=== PATIENT | female | born 1970 | race Asian ===

== ENCOUNTER 2018-12-04 18:48 | Emergency (ER) | payer MEDICAID ==
[~2018-12-04] VITALS: Ht 157.5 cm; Wt 58.3 kg
[2018-12-04 18:52] VITALS: Ht 157.5 cm; Wt 58.3 kg
[2018-12-04 20:30] VITALS: BP 140/90
== END 2018-12-04 20:30 | disposition home or self-care (01) ==
LOC: ED 18:48
DX: S16.1XXA Strain of muscle, fascia and tendon at neck level, initial encounter (principal); M54.12 Radiculopathy, cervical region; Z60.2 Problems related to living alone; W01.0XXA Fall on same level from slipping, tripping and stumbling without subsequent striking against object, initial encounter; Y93.89 Activity, other specified; Y92.89 Other specified places as the place of occurrence of the external cause; Y99.8 Other external cause status